=== PATIENT | female | born 1955 ===

== ENCOUNTER 2024-01-25 12:37 | Day surgery (SDC) | payer MEDICARE, OTHER ==
[~2024-01-25] VITALS: Ht 149.9 cm; Wt 58.7 kg
[~2024-01-25 12:37] MED LIST: ALBU90OI INH; AMLO5 PO; CATAPRES0.1 MG PO; CLOBETTC TOP; CLON.5 PO; LEVSOD100 PO; LIOT5 PO; Lactated Ringer's 1,000 ML IV ONE; MAGNESIUM GLU27.5 M1 PO; NIAC500 PO; OMEP20ER PO; POTA10T PO; TRAZ50 PO; ZEPBOUND7.5 MG/0.5 SQ; ZESTRIL40 M1 PO
[2024-01-25] MEDS ORDERED: Lactated Ringer's 1,000 ML IV ONE (13:31)
[2024-01-25] MEDS ORDERED: FentaNYL Citrate 50 MCG/ML 2 ML Injection ONE (13:43)
[2024-01-25] MEDS ORDERED: propofoL 40 ML IV ONE (13:43)
[2024-01-25] MEDS ORDERED: Ropivacaine 0.5% HCl/Pf 5 MG/ML 20ML VIAL INJ ONE ×2 (13:52)
[2024-01-25] MEDS ORDERED: Ketorolac Tromethamine 30mg Vial ONE (13:59)
[2024-01-25] MEDS ORDERED: Dexamethasone Sod Phos 10 MG/ML 1ML VIAL ONE (13:59)
[2024-01-25] MEDS ORDERED: Ondansetron HCl 2 MG / ML 2ML Vial ONE (13:59)
== END 2024-01-25 14:50 | disposition home or self-care (01) ==
LOC: ORSCSDS 12:37
PROVIDERS: Podiatrist Foot & Ankle Surgery
PROC: 0QBQ0ZZ Excision of Right Toe Phalanx, Open Approach (ICD-10-PCS; principal; 2024-01-25 13:45)
DX: M89.9 Disorder of bone, unspecified (principal); M77.9 Enthesopathy, unspecified; M79.671 Pain in right foot; I10 Essential (primary) hypertension; K21.9 Gastro-esophageal reflux disease without esophagitis; E11.9 Type 2 diabetes mellitus without complications; Z79.899 Other long term (current) drug therapy
CPT/HCPCS: 82947; J1100; J1885; J2405; J2704; J2795; J3010; J7120